=== PATIENT | female | born 1975 | race Two or more races ===

== ENCOUNTER 2021-09-15 20:44 | Emergency (ER) | payer OTHER ==
[~2021-09-15] VITALS: Ht 154.9 cm; Wt 88.5 kg
[2021-09-15] MEDS ORDERED: FOLIC ACID0.8 M1 (20:53)
== END 2021-09-15 22:46 | disposition home or self-care (01) ==
LOC: ER 20:44
DX: O03.9 Complete or unspecified spontaneous abortion without complication (principal)